=== PATIENT | female | born 1985 | race Two or more races ===

== ENCOUNTER 2020-04-02 09:49 | Outpatient (CLI) | payer OTHER | END 2020-04-02 13:47 | disposition home or self-care (01) | LOC: MAMO-SONO 09:49 | DX: Z12.31 Encounter for screening mammogram for malignant neoplasm of breast (principal); Z87.898 Personal history of other specified conditions; N63.10 Unspecified lump in the right breast, unspecified quadrant; N63.20 Unspecified lump in the left breast, unspecified quadrant; N64.4 Mastodynia; N60.11 Diffuse cystic mastopathy of right breast ==